=== PATIENT | female | born 1970 | race Caucasian/White ===

== ENCOUNTER → 2017-01-04 | Outpatient (CLI) | payer OTHER ==
--- NOTE | ~2017-01-04 | CR107 ---
[facility] A Service of [facility] & [facility] / [facility] RADIOLOGY TEXT RESULTS PATIENT: MIKE ALCALA LOCATION: CNIV : [birth year] UNIT #: [id number] AGE: [address]: Malathi Duarte MD SEX: F ORDER DR: [id number] [place], [place] [address] [id number] O MR#: [id number] Acc #: [id number] NAME: MIKE ALCALA : 1970 SEX: F STUDY DATE/TIME: 01/04/2017 14:39 UNIT: CNIV ROOM: STUDY DESCRIPTION: CR Femur 2 Views Rt Attending Physician: Malathi Duarte M.D. Referring Physician: Malathi Duarte M.D. Ordering Physician: Malathi Duarte M.D. Primary Care Physician: Malathi Duarte M.D. MEDICAL IMAGING REPORT This report is preliminary unless electronic signature is present EXAM Right femur, 01/04/2017. HISTORY 46-year-old female with right femur pain for 1 week. No specific injury. COMPARISON Right knee, 04/29/2015. FINDINGS Four views of the right femur demonstrate no acute fracture or dislocation. No evidence of a knee effusion. Soft tissues are unremarkable. IMPRESSION Unremarkable right femur. Dictated by... Pardeep Palma M.D. THIS IS AN ELECTRONICALLY VERIFIED REPORT Pardeep Palma M.D. at 01/07/2017 2:51 PM DHEERAJ/[place] TD: 01/04/2017 22:01 JOB #: [id number] MEDICAL IMAGING REPORT Page 1 of 1 COPY
--- NOTE | ~2017-01-04 | CR253 ---
[facility] A Service of [facility] & [facility] RADIOLOGY TEXT RESULTS PATIENT: MIKE ALCALA LOCATION: CNIV : [birth year] UNIT #: [id number] AGE: [address]: Malathi Duarte MD SEX: F ORDER DR: [id number] [place], [place] [address] [id number] O MR#: [id number] Acc #: [id number] NAME: MIKE ALCALA : 1970 SEX: F STUDY DATE/TIME: 01/04/2017 14:31 UNIT: CNIV ROOM: STUDY DESCRIPTION: CR Tibia and Fibula 2 Views Rt Attending Physician: Malathi Duarte M.D. Referring Physician: Malathi Duarte M.D. Ordering Physician: Malathi Duarte M.D. Primary Care Physician: Malathi Duarte M.D. MEDICAL IMAGING REPORT This report is preliminary unless electronic signature is present EXAM Right leg, 01/04/2017 HISTORY A 46-year-old female with right leg pain for 1 week. No specific injury. COMPARISON STUDIES Right knee 04/29/2015 FINDINGS Two views of the right leg demonstrate no acute fracture or dislocation. Soft tissues are unremarkable. IMPRESSION Negative right leg. Dictated by... Pardeep Palma M.D. THIS IS AN ELECTRONICALLY VERIFIED REPORT Pardeep Palma M.D. at 01/07/2017 2:51 PM DHEERAJ/[place] TD: 01/04/2017 21:56 JOB #: [id number] MEDICAL IMAGING REPORT Page 1 of 1 COPY
--- NOTE | ~2017-01-04 | US85 ---
[facility] A Service of [facility] RADIOLOGY TEXT RESULTS PATIENT: MIKE ALCALA LOCATION: CNIV : [birth year] UNIT #: [id number] AGE: [address]: Malathi Duarte MD SEX: F ORDER DR: [id number] [facility] [address] [place], [place] [address] [id number] O MR#: [id number] Acc #: [id number] NAME: MIKE ALCALA : 1970 SEX: F STUDY DATE/TIME: 01/04/2017 14:57 UNIT: CNIV ROOM: STUDY DESCRIPTION: [facility] Attending Physician: Malathi Duarte M.D. Referring Physician: Malathi Duarte M.D. Ordering Physician: Malathi Duarte M.D. Primary Care Physician: Malathi Duarte M.D. MEDICAL IMAGING REPORT This report is preliminary unless electronic signature is present EXAM Unilateral right lower extremity venous Doppler 01/04/2017 CLINICAL HISTORY Right leg pain and swelling. COMPARISON STUDIES None TECHNIQUE Venous ultrasound examination of the right lower extremity was performed using grayscale, spectral Doppler and color flow Doppler imaging. FINDINGS The examination is negative. There is no evidence of right lower extremity deep venous thrombus from the groin to the lower calf. Visualized greater saphenous vein is also patent. IMPRESSION Negative examination. No evidence of right lower extremity deep venous thrombosis. Dictated by... Tyler Aponte M.D. THIS IS AN ELECTRONICALLY VERIFIED REPORT Tyler Aponte M.D. at 01/09/2017 10:04 AM VERO/car[place] TD: 01/04/2017 18:01 JOB #: [id number] [facility] A Service [facility] RADIOLOGY TEXT RESULTS PATIENT: MIKE ALCALA LOCATION: CNIV : [birth year] UNIT #: [id number] AGE: [address]: Malathi Duarte MD SEX: F ORDER DR: MEDICAL IMAGING REPORT Page 1 of 1 COPY
== END | disposition home or self-care (01) ==
LOC: CNIV 13:57
DX: M79.661 Pain in right lower leg (principal); M79.89 Other specified soft tissue disorders
CPT/HCPCS: 73552; 73590; 93971